=== PATIENT | female | born 1965 | race Caucasian/White ===

== ENCOUNTER 2017-11-21 07:47 | Day surgery (SDC) | payer OTHER ==
[2017-11-17 13:53] VITALS: BMI 28.5
[2017-11-21] MEDS ORDERED: LIDOCAINE HCL 1%, 10 MG/ML (20ML VIAL) ONE (10:22)
[2017-11-21] MEDS ORDERED: BUPIVACAINE HCL/PF 2.5 MG/ML - 30 ML VIAL IJ ONE (10:22)
[2017-11-21] MEDS ORDERED: DEXAMETHASONE SOD PHOSPHATE 4 MG/1 ML VIAL ONE ×2 (10:39→11:11)
[2017-11-21] MEDS ORDERED: MIDAZOLAM HCL 2 MG/2 ML SINGLE DOSE VIAL ONE (10:40)
[2017-11-21] MEDS ORDERED: ONDANSETRON 4 MG/2 ML VIAL ONE ×2 (10:40→11:11)
[2017-11-21] MEDS ORDERED: PROPOFOL 20 ML ONE (10:45)
[2017-11-21] MEDS ORDERED: CLINDAMYCIN PHOSPHATE 600 MG/4 ML VIAL ONE (10:46)
[2017-11-21] MEDS ORDERED: LIDOCAINE HCL 1%, 10 MG/ML (50 mL VIAL) IJ ONE (10:58)
[2017-11-21] MEDS ORDERED: BUPIVACAINE HCL/PF 0.25% (2.5MG/ML) 10 ML VIAL IJ ONE (10:58)
[2017-11-21] MEDS ORDERED: KETOROLAC TROMETHAMINE 30 MG/1 ML VIAL ONE (11:11)
[2017-11-21] MEDS ORDERED: ONDANSETRON 4 MG/2 ML VIAL IVPUSH PRN (11:34)
[2017-11-21] MEDS ORDERED: oxyCODONE HCL 5 MG TABLET PO PRN (11:34)
[2017-11-21] MEDS ORDERED: LACTATED RINGERS SOLUTION 1,000 ML IV SCH (11:45)
[2017-11-21] MEDS ORDERED: ACETAMINOPHEN 325 MG TABLET (FP) ONE (11:50)
[2017-11-21] MEDS: ACETAMINOPHEN 325 MG TABLET (FP) PO PRN ×2 (11:50→11:52)
[2017-11-21 12:50] VITALS: BP 132/76; PULSE 88; TEMP 98
--- NOTE | 2017-11-23 23:24 | OP ---
DATE OF OPERATION: 11/21/2017 SURGEON: Yanique Smith MD PE MANAGER: ROXIE Rodríguez PREOPERATIVE DIAGNOSIS: Right wrist de Quervain's tenosynovitis. POSTOPERATIVE DIAGNOSIS: Right wrist de Quervain's tenosynovitis. PROCEDURE: Release of right wrist de Quervain's tenosynovitis. FINDINGS: Thickened de Quervain's sheath, right wrist. PROCEDURE PERFORMED: Consent was obtained. Patient was taken to the operating room where the right upper extremity was prepped and draped in the sterile fashion. Tourniquet was placed on the upper arm and inflated to 250 mmHg. A horizontal incision was made 2 cm proximal to the distal radial styloid. The de Quervain's sheath was identified and noted to be thickened. An incision was made along the sheath, paying careful attention to avoid neurovascular structures. This was then extended proximally and distally, leaving a superior flap to prevent dislocation. The individual tendons were identified and no separate sheaths were noted in the canal. Wound was then irrigated with copious amounts of irrigation and closed with 4-0 nylon single interrupted sutures. YANIQUE SMITH M.D. [id number]
== END 2017-11-21 12:53 | disposition home or self-care (01) ==
LOC: FASU 07:47
PROVIDERS: ATTEND Orthopaedic Surgery
PROC: 0LN50ZZ Release Right Lower Arm and Wrist Tendon, Open Approach (ICD-10-PCS; principal; 2017-11-21 10:58)
DX: M65.4 Radial styloid tenosynovitis [de Quervain] (principal)

== ENCOUNTER 2024-01-24 19:57 | Emergency (ER) | payer OTHER ==
[2024-01-24 20:37] VITALS: BP 137/72; PULSE 70; RESP 16; TEMP 98.6; BMI 30.4
[2024-01-24 21:14] LABS: HEMATOCRIT 41.8 % (32.4-45.2); HEMOGLOBIN 13.9 G/dL (10.7-15.3); MCHC 33.2 g/dl (32.0-36.0); MEAN CELL VOLUME 84.3 fl (80-96); MEAN PLT VOLUME 8.3 fl (7.5-11.1); PLATELET COUNT 239.3 10^3/uL (134-434); RBC 4.96 10^6/uL (3.60-5.2); RDW 14.3 % (11.6-15.6); WHITE BLOOD COUNT 8.1 10^3/uL (4.0-10.8)
[2024-01-24 21:23] LABS: EPITHELIAL CELLS 0-5 /hpf
[2024-01-24 21:24] LABS: ALBUMIN 4.4 g/dl (3.4-5.0); ALK PHOS 70 U/L (45-117); ANION GAP 6 mmol/L (4-13); BILIRUBIN,TOTAL 0.3 mg/dl (0.2-1); CALCIUM 9.9 mg/dl (8.5-10.1); CHLORIDE 104 mmol/L (98-107); CO2 29 mmol/L (21-32); CREATININE 0.9 mg/dl (0.6-1.3); GLUCOSE,RANDOM 114 mg/dl (74-106); POTASSIUM 3.8 mmol/L (3.5-5.1); SGOT/AST 20 U/L (15-37); SGPT/ALT 52 U/L (7-52); SODIUM 139 mmol/L (136-145); TOT PROT 6.5 g/dl (6.4-8.2)
[2024-01-24 21:24] LABS: URINE HYALINE CAST 0-1 /lpf
[2024-01-24 21:36] LABS: PROTHROMBIN TIME (PATIENT) 10.9 SEC (9.7-13.0)
[2024-01-24 21:37] LABS: INR 0.95 (0.83-1.09)
[2024-01-24] MEDS ORDERED: DIPHTH,PERTUSS(ACELL),TET 0.5 ML DISP.SYRIN IM ONE (22:56)
[2024-01-24] MEDS: DIPHTH,PERTUSS(ACELL),TET 0.5 ML DISP.SYRIN IM ONE (23:02)
[2024-01-24] MEDS: SODIUM CHLORIDE 1,000 ML IV STA (23:03)
== END 2024-01-25 01:12 | disposition home or self-care (01) ==
LOC: FER 19:57
PROC: 3E0337Z Introduction of Electrolytic and Water Balance Substance into Peripheral Vein, Percutaneous Approach (ICD-10-PCS; principal; 2024-01-24)
PROC: 3E0234Z Introduction of Serum, Toxoid and Vaccine into Muscle, Percutaneous Approach (ICD-10-PCS; 2024-01-24)
DX: R07.89 Other chest pain (principal); R60.0 Localized edema; R53.81 Other malaise; Z23 Encounter for immunization
CPT/HCPCS: 36415; 71045-TC-FY; 71275-TC; 73630-TC-LT; 80053; 81003; 81015; 83880; 84484; 85027; 85379; 85610; 87086; 90715; 93005; 93971-TC; 99285-25; Q9967